=== PATIENT | female | born 1985 | race Caucasian/White ===

== ENCOUNTER 2019-04-14 14:47 | Emergency (ER) | payer MEDICARE, MEDICAID ==
[~2019-04-14] VITALS: Ht 167.6 cm; Wt 54.0 kg
[2019-04-14 14:58] VITALS: BP 112/66
== END 2019-04-14 15:46 | disposition left against medical advice (07) ==
LOC: ER 14:47
DX: R56.9 Unspecified convulsions (principal); Z53.21 Procedure and treatment not carried out due to patient leaving prior to being seen by health care provider